=== PATIENT | male | born 1955 | race Caucasian/White ===

== ENCOUNTER 2018-01-11 09:16 | Day surgery (SDC) | payer BC ==
[~2018-01-11] VITALS: Ht 172.7 cm; Wt 61.6 kg
[~2018-01-11 09:16] MED LIST: ATOR10 PO; Advil200 M1; ERGO400; VITAMIN D35000 UNIT PO
== END 2018-01-11 11:18 | disposition home or self-care (01) ==
LOC: ORSCSDS 09:16
PROVIDERS: Internal Medicine Gastroenterology
PROC: 0DBN8ZX Excision of Sigmoid Colon, Via Natural or Artificial Opening Endoscopic, Diagnostic (ICD-10-PCS; principal; 2018-01-11 10:30)
DX: R10.32 Left lower quadrant pain (principal); K63.5 Polyp of colon; K57.30 Diverticulosis of large intestine without perforation or abscess without bleeding; Z86.010 Personal history of colon polyps; F17.210 Nicotine dependence, cigarettes, uncomplicated; Z79.899 Other long term (current) drug therapy
CPT/HCPCS: 88305; J1980; J7120

== ENCOUNTER → 2018-09-30 | Outpatient (CLI) | payer BC ==
[2018-09-30 15:09] LABS: Albumin, Blood 3.6 g/dL (3.4-5.0); Albumin/Globulin Ratio 1.2 (0.8-1.8); Alk Phos 103 U/L (50-136); Anion Gap 3 mmol/L (6-16); Aspartate Aminotrans (AST/SGOT 17 U/L (12-37); Bilirubin, Total 0.3 mg/dL (0.1-1.0); Blood Urea Nitrogen 22 mg/dL (8-24); CHOL/HDL RATIO 4.3; CO2, Blood 31 mmol/L (21-32); Chloride, Blood 109 mmol/L (98-108); Cholesterol 180 mg/dL (50-200); Globulin, Blood 3.1 g/dL (2.2-4.0); Glucose, Blood 79 mg/dL (70-99); HDL Cholesterol 42 mg/dL (>39); LDL/HDL RATIO 2.7; Low Density Lipoprotein Chol 115 mg/dL (0-110); Potassium, Blood 4.6 mmol/L (3.5-5.5); Sodium, Blood 143 mmol/L (136-145); Total Protein, Blood 6.7 g/dL (6.4-8.2); Triglycerides 117 mg/dL (30-160); Very Low Density Lipoprot Chol 23 mg/dL (6-32)
[2018-09-30 15:11] LABS: Alanine Aminotransfer (ALT/SGP 29 U/L (12-78); Bun/Creatinine Ratio 24.1 (12.0-20.0); Creatinine, Blood 0.91 mg/dL (0.60-1.20); Glomerular Filtration Rate >60 (60-)
== END | disposition home or self-care (01) ==
LOC: LAB SHORT 14:20 → LAB 14:20
PROVIDERS: Hospitalist
DX: Z12.5 Encounter for screening for malignant neoplasm of prostate (principal); E78.5 Hyperlipidemia, unspecified
CPT/HCPCS: 80053; 80061; G0103

== ENCOUNTER 2020-04-28 02:47 | Emergency (ER) | payer BC ==
[~2020-04-28] VITALS: Ht 172.7 cm; Wt 61.2 kg
[2020-04-28] MEDS ORDERED: CLOP75 PO (03:06)
[2020-04-28] MEDS ORDERED: TRAZ100 PO (03:06)
[2020-04-28] MEDS ORDERED: MELA3 PO (03:06)
[2020-04-28] MEDS ORDERED: BUPR75 PO (03:06)
[2020-04-28] MEDS ORDERED: BANOPHEN50 MG PO (03:08)
[2020-04-28] MEDS ORDERED: ACET500 PO (03:08)
[2020-04-28] MEDS ORDERED: Vitamin D2000 UNIT PO (03:08)
[2020-04-28 05:01] LABS: BASOPHILS ABSOLUTE AUTO 0.09 K/mm3 (0.00-0.23); BASOPHILS PERCENT AUTO 1 % (0-2); EOSINOPHILS ABSOLUTE AUTO 0.07 K/mm3 (0.00-0.68); EOSINOPHILS PERCENT AUTO 1 % (0-6); Hemoglobin 14.3 g/dL (13.5-17.5); IMMATURE GRAN ABSOLUTE AUTO 0.09 K/mm3 (0.00-0.10); IMMATURE GRAN PERCENT AUTO 1 % (0-1); LYMPHOCYTES ABSOLUTE AUTO 2.01 K/mm3 (0.84-5.20); LYMPHOCYTES PERCENT AUTO 15 % (21-46); MONOCYTES ABSOLUTE AUTO 0.98 K/mm3 (0.16-1.47); MONOCYTES PERCENT AUTO 7 % (4-13); Mean Corpuscular HGB 28.8 pg (26.0-34.0); Mean Corpuscular HGB Conc 32.5 g/dL (31.5-36.5); Mean Corpuscular Volume 89 fL (80-100); Mean Platelet Volume 9.4 fL (9.1-12.4); NEUTROPHILS ABSOLUTE AUTO 10.36 K/mm3 (1.96-9.15); NEUTROPHILS PERCENT AUTO 76 % (41-73); Platelet Count 198 K/mm3 (150-400); RDW Coefficient Variation 12.7 % (11.7-14.2); RDW Standard Deviation 41.1 fL (35.1-46.3); Red Blood Cell Count 4.97 M/mm3 (4.30-5.90)
[2020-04-28 05:28] LABS: Alanine Aminotransfer (ALT/SGP 28 U/L (12-78); Albumin, Blood 3.5 g/dL (3.4-5.0); Alk Phos 108 U/L (50-136); Anion Gap 5 mmol/L (6-16); Aspartate Aminotrans (AST/SGOT 21 U/L (12-37); Bilirubin, Total 0.3 mg/dL (0.1-1.0); Blood Urea Nitrogen 20 mg/dL (8-24); Bun/Creatinine Ratio 19.8 (12.0-20.0); CO2, Blood 29 mmol/L (21-32); Calcium, Blood 9.1 mg/dL (8.5-10.1); Chloride, Blood 108 mmol/L (98-108); Creatinine, Blood 1.01 mg/dL (0.60-1.20); Globulin, Blood 3.5 g/dL (2.2-4.0); Glomerular Filtration Rate >60 (60-); Glucose, Blood 100 mg/dL (70-99); Magnesium, Blood 2.1 mg/dL (1.6-2.4); Potassium, Blood 4.2 mmol/L (3.5-5.5); Sodium, Blood 142 mmol/L (136-145); Troponin I <0.015 ng/mL (0.000-0.040)
== END 2020-04-28 06:07 | disposition home or self-care (01) ==
LOC: ER 02:47
PROVIDERS: Emergency Medicine
DX: R06.00 Dyspnea, unspecified (principal); J44.9 Chronic obstructive pulmonary disease, unspecified; Z79.02 Long term (current) use of antithrombotics/antiplatelets; Z79.01 Long term (current) use of anticoagulants; Z79.899 Other long term (current) drug therapy
CPT/HCPCS: 36415; 71045; 80053; 83735; 84484; 85025; 85379; 93005; 93010; 99284-25

== ENCOUNTER 2021-07-18 06:43 | Day surgery (SDC) | payer BC ==
[~2021-07-18] VITALS: Ht 172.7 cm; Wt 71.8 kg
[~2021-07-18 06:43] MED LIST changes: +ACET500 PO; +ALBU90OI INH; +BANOPHEN50 MG PO; +BUPR75 PO; +CLOP75 PO; +Isosorbide Mono30 MG PO; +MELA3 PO; +TRAZ100 PO; +TRELEGY ELLIPT1 EACH INH; +Vitamin D2000 UNIT PO
[2021-07-18 08:56] LABS: Influenza A, PCR NEGATIVE (NEGATIVE); Influenza B, PCR NEGATIVE (NEGATIVE); Resp Syncytial Virus, PCR NEGATIVE (NEGATIVE); SARS-Cov-2 (COVID-19) PCR, MMC NEGATIVE (NEGATIVE)
--- NOTE | 2021-07-18 10:25 | NUR ---
DR SWAN AT BEDSIDE SPEAKING WITH PATIENT ABOUT ANGIOGRAM RESULTS AND PLAN FOR POSSIBLE CABG.
--- NOTE | 2021-07-18 11:00 | NUR ---
TR BAND HAS BEEN FULLY DEFLATED. NO BLEEDING OR SWELLING AT SITE. PT DENIES PAIN OR DISCOMFORT, CALL LIGHT IN REACH.
--- NOTE | 2021-07-18 11:44 | NUR ---
PT AMBULATED TO BATHROOM WITHOUT DIFFICULTY, RIGHT RADIAL SITE REMAINS SOFT AND NON-TENDER AND WITHOUT BLEEDING OR SWELLING.
--- NOTE | 2021-07-18 12:00 | NUR ---
IV DC'D, CATH INTACT. RIGHT RADIAL SITE SOFT, NON-TENDER, WITH NO BLEEDING OR SWELLING NOTED. CLOTH DOT DRESSING AND SPLINT IN PLACE. PT HAS VERBALIZED UNDERSTANDING OF DC INSTRUCTIONS AND ALL FOLLOW UP INFORMATION. OUT TO CAR VIA WHEELCHAIR, SPOUSE TO DRIVE PATIENT HOME.
== END 2021-07-18 12:00 | disposition home or self-care (01) ==
LOC: MHTC 06:43
PROVIDERS: Internal Medicine Interventional Cardiology
DX: I25.118 Atherosclerotic heart disease of native coronary artery with other forms of angina pectoris (principal); I65.22 Occlusion and stenosis of left carotid artery; E78.5 Hyperlipidemia, unspecified; Z87.891 Personal history of nicotine dependence
CPT/HCPCS: 0241U; 76937; 93458; 99152; 99153; A9270; C1769; C1887; C1894; J1644; J2250; J3010; J7030; J7050; Q9967

== ENCOUNTER → 2021-09-26 | Outpatient (CLI) | payer BC ==
[2021-09-26 15:00] LABS: BASOPHILS ABSOLUTE AUTO 0.09 K/mm3 (0.00-0.23); BASOPHILS PERCENT AUTO 1 % (0-2); EOSINOPHILS ABSOLUTE AUTO 0.12 K/mm3 (0.00-0.68); EOSINOPHILS PERCENT AUTO 1 % (0-6); Hematocrit 42.7 % (37.0-53.0); Hemoglobin 13.6 g/dL (13.5-17.5); IMMATURE GRAN ABSOLUTE AUTO 0.04 K/mm3 (0.00-0.10); IMMATURE GRAN PERCENT AUTO 0 % (0-1); LYMPHOCYTES ABSOLUTE AUTO 2.11 K/mm3 (0.84-5.20); LYMPHOCYTES PERCENT AUTO 18 % (21-46); MONOCYTES ABSOLUTE AUTO 0.77 K/mm3 (0.16-1.47); MONOCYTES PERCENT AUTO 7 % (4-13); Mean Corpuscular HGB 27.8 pg (26.0-34.0); Mean Corpuscular HGB Conc 31.9 g/dL (31.5-36.5); Mean Corpuscular Volume 87 fL (80-100); Mean Platelet Volume 10.5 fL (9.1-12.4); NEUTROPHILS ABSOLUTE AUTO 8.56 K/mm3 (1.96-9.15); NEUTROPHILS PERCENT AUTO 73 % (41-73); Platelet Count 221 K/mm3 (150-400); RDW Coefficient Variation 13.4 % (11.7-14.2); RDW Standard Deviation 43.4 fL (35.1-46.3); Red Blood Cell Count 4.89 M/mm3 (4.30-5.90); White Blood Cell Count 11.69 K/mm3 (4.00-11.30)
[2021-09-26 15:07] LABS: Alanine Aminotransfer (ALT/SGP 35 U/L (12-78); Albumin, Blood 3.7 g/dL (3.4-5.0); Albumin/Globulin Ratio 1.2 (0.8-1.8); Alk Phos 119 U/L (50-136); Anion Gap 9 mmol/L (6-16); Aspartate Aminotrans (AST/SGOT 22 U/L (12-37); Bilirubin, Total 0.4 mg/dL (0.1-1.0); Blood Urea Nitrogen 16 mg/dL (8-24); Bun/Creatinine Ratio 17.2 (12.0-20.0); CO2, Blood 25 mmol/L (21-32); Chloride, Blood 109 mmol/L (98-108); Creatinine, Blood 0.93 mg/dL (0.60-1.20); Globulin, Blood 3.2 g/dL (2.2-4.0); Glomerular Filtration Rate >60 (60-); Glucose, Blood 97 mg/dL (70-99); Potassium, Blood 4.3 mmol/L (3.5-5.5); Sodium, Blood 143 mmol/L (136-145); Total Protein, Blood 6.9 g/dL (6.4-8.2)
== END | disposition home or self-care (01) ==
LOC: LAB SHORT 09:40 → LAB 09:40
PROVIDERS: Hospitalist
DX: R06.02 Shortness of breath (principal)
CPT/HCPCS: 80053; 83880; 85025

== ENCOUNTER → 2022-08-05 | Outpatient (CLI) | payer BC ==
[2022-08-06 12:18] LABS: Campylobacter Sp Not Detected (NOT DETECT)
[2022-08-06 12:19] LABS: Adenovirus F 40/41 Not Detected (NOT DETECT); Astrovirus Not Detected (NOT DETECT); Cryptosporidium Not Detected (NOT DETECT); Cyclospora Cayetanensis Not Detected (NOT DETECT); E. Coli O157 Not Detected (NOT DETECT); Entamoeba Histolytica Not Detected (NOT DETECT); Enteroaggregative E. coli-EAEC Not Detected (NOT DETECT); Enteropathogenic E. coli-EPEC Not Detected (NOT DETECT); Enterotoxigenic E. coli-ETEC Not Detected (NOT DETECT); Giardia Lamblia Not Detected (NOT DETECT); Norovirus GI/GII Not Detected (NOT DETECT); Plesiomonas Shigelloides Not Detected (NOT DETECT); Rotavirus A Not Detected (NOT DETECT); Salmonella Sp Not Detected (NOT DETECT); Sapovirus Not Detected (NOT DETECT); Shiga Toxin-prod E. coli-STEC Not Detected (NOT DETECT); Shigella/Enteroin E. coli-EIEC Not Detected (NOT DETECT); Vibrio Cholerae Not Detected (NOT DETECT); Vibrio Sp Not Detected (NOT DETECT); Yersinia Enterocolitica Not Detected (NOT DETECT)
== END | disposition home or self-care (01) ==
LOC: LAB SHORT 11:40
PROVIDERS: Hospitalist
DX: R19.7 Diarrhea, unspecified (principal)
CPT/HCPCS: 87507

== ENCOUNTER → 2023-04-02 | Outpatient (CLI) | payer BC ==
[2023-04-02 16:05] LABS: Alanine Aminotransfer (ALT/SGP 36 U/L (12-78); Albumin, Blood 3.3 g/dL (3.4-5.0); Alk Phos 118 U/L (50-136); Anion Gap 5 mmol/L (6-16); Aspartate Aminotrans (AST/SGOT 22 U/L (12-37); Bilirubin, Total 0.3 mg/dL (0.1-1.0); Blood Urea Nitrogen 18 mg/dL (8-24); Bun/Creatinine Ratio 16.1 (12.0-20.0); CO2, Blood 28 mmol/L (21-32); Calcium, Blood 8.7 mg/dL (8.5-10.1); Chloride, Blood 109 mmol/L (98-108); Cholesterol 152 mg/dL (50-200); Creatinine, Blood 1.12 mg/dL (0.60-1.20); Globulin, Blood 3.2 g/dL (2.2-4.0); Glomerular Filtration Rate 71 (60-); Glucose, Blood 96 mg/dL (70-99); HDL Cholesterol 38 mg/dL (>39); LDL/HDL RATIO 2.2; Low Density Lipoprotein Chol 83 mg/dL (0-110); Potassium, Blood 4.3 mmol/L (3.5-5.5); Sodium, Blood 142 mmol/L (136-145); Total Protein, Blood 6.5 g/dL (6.4-8.2); Triglycerides 153 mg/dL (30-160); Very Low Density Lipoprot Chol 30 mg/dL (6-32)
== END | disposition home or self-care (01) ==
LOC: LAB SHORT 09:00 → LAB 09:00
PROVIDERS: Hospitalist
DX: I10 Essential (primary) hypertension (principal); E78.5 Hyperlipidemia, unspecified
CPT/HCPCS: 80053; 80061

== ENCOUNTER 2025-03-01 07:08 | Day surgery (SDC) | payer BC ==
[~2025-03-01] VITALS: Ht 172.7 cm; Wt 73.3 kg
[2025-03-01] VITALS (7 sets, daily range): BP systolic 120–138; BP diastolic 63–108
[~2025-03-01 07:08] MED LIST changes: +BISOPROLOL FUM2.5 MG PO; +Buspirone HCl15 MG PO; +C COMPLEX1000 M1 PO; +Lisinopril10 MG PO; +TAMS.4ER PO; +TIMO.25OPS BOTHEYES; +ZYRTEC10 M1 PO
[2025-03-01] MEDS ORDERED: Heparin Sodium 1000 Units/ML 10ML MDV ONE ×2 (07:45→08:21)
[2025-03-01] MEDS ORDERED: NS 500 ML IV ONE (07:45)
[2025-03-01] MEDS ORDERED: NS 250 ML IV ONE (07:45)
[2025-03-01] MEDS ORDERED: NS 1,000 ML IV ONE ×2 (07:45→08:21)
[2025-03-01] MEDS ORDERED: NS 100 ML IV ONE (07:45)
[2025-03-01] MEDS ORDERED: Midazolam HCl 1MG / ML 2ML Vial ONE (08:20)
[2025-03-01] MEDS ORDERED: FentaNYL Citrate 50 MCG/ML 2 ML Injection ONE (08:20)
[2025-03-01] MEDS ORDERED: Protamine Sulfate 50 MG Amp ONE (10:31)
--- NOTE | 2025-03-01 12:38 | NUR ---
PT AND S/O VERBALIZES UNDERSTANDING WRITTEN AND VERBAL INSTRUCTIONS. DENIES QUESTIONS OR CONCERNS. VSS. PT R FEMORAL SITE REMAINS C/D/I. NO BLEEDING NOTED. CALL LIGHT WITHIN REACH.
--- NOTE | 2025-03-01 13:25 | NUR ---
PT DRESSES SELF WITHOUT DIFF. PT AMBULATES TO RESTROOM AND BACK. PT R FEMORAL SITE REMAINS C/D/I. PT IV DC'D. CATH INTACT. PRESSURE DSG APPLIED. PT DC TO HOME VIA WC BY S/O
== END 2025-03-01 13:25 | disposition home or self-care (01) ==
LOC: MHTC 07:08
DX: I70.223 Atherosclerosis of native arteries of extremities with rest pain, bilateral legs (principal); I25.10 Atherosclerotic heart disease of native coronary artery without angina pectoris; E78.5 Hyperlipidemia, unspecified; I10 Essential (primary) hypertension; N40.0 Benign prostatic hyperplasia without lower urinary tract symptoms; Z87.891 Personal history of nicotine dependence; Z79.02 Long term (current) use of antithrombotics/antiplatelets; Z79.899 Other long term (current) drug therapy; Z95.1 Presence of aortocoronary bypass graft
CPT/HCPCS: 37227; 75625; 75716; 75774; 76937; 93242; 99152; 99153; A9270; J1644; J2250; J2720; J3010; J7030; J7040; J7050; Q9967

== ENCOUNTER 2025-03-21 07:04 | Day surgery (SDC) | payer BC ==
[2025-03-21] VITALS (7 sets, daily range): BP systolic 121–133; BP diastolic 69–90
[~2025-03-21] VITALS: Ht 172.7 cm; Wt 74.0 kg
[~2025-03-21 07:04] MED LIST changes: +VITAMIN D310 MC5 PO; -VITAMIN D35000 UNIT PO
[2025-03-21] MEDS ORDERED: LATA.005SO BOTHEYES (07:30)
[2025-03-21] MEDS ORDERED: Midazolam HCl 1MG / ML 2ML Vial ONE (07:46)
[2025-03-21] MEDS ORDERED: NS 1,000 ML IV ONE ×2 (07:46→07:56)
[2025-03-21] MEDS ORDERED: FentaNYL Citrate 50 MCG/ML 2 ML Injection ONE (07:46)
[2025-03-21] MEDS ORDERED: NS 250 ML IV ONE (07:55)
[2025-03-21] MEDS ORDERED: Heparin Sodium 1000 Units/ML 10ML MDV ONE (07:56)
[2025-03-21] MEDS ORDERED: Nitroglycerin 2 MG/20 ML BTL ONE (07:57)
[2025-03-21] MEDS ORDERED: NS 100 ML IV ONE (08:01)
--- NOTE | 2025-03-21 09:40 | NUR ---
PATIENT ARRIVED BACK TO RECOVERY ROOM WITH HOB FLAT. LEFT GROIN SITE C/D/I SOFT/NONTENDER, NO EVIDENCE OF BLEEDING. VSS ON RA. BILATERAL DISTAL PULSES PRESENT.
--- NOTE | 2025-03-21 10:30 | NUR ---
PATIENT HOB ELEVATED 30 DEGREES. LEFT GROIN SITE C/D/I SOFT/NONTENDER, NO EVIDENCE OF BLEEDING. BILATERAL DPS STRONG AND PALPABLE. VSS ON RA.
--- NOTE | 2025-03-21 10:51 | NUR ---
PATIENT SITTING UPRIGHT IN BED TOLERATING PO INTAKE WELL. LEFT GROIN SITE C/D/I SOFT/NONTENDER, NO EVIDENCE OF BLEEDING. VSS ON RA.
--- NOTE | 2025-03-21 11:00 | NUR ---
PATIENT AMBULATING TO RESTROOM WITHOUT DIFFICULTY. LEFT GROIN SITE C/D/I SOFT/NONTENDER, NO EVIDENCE OF BLEEDING. VSS ON RA. DISTAL BILATERAL DP PULSES PRESENT. PATIENT TOLERATING PO INTAKE WELL. SPOUSE PRESENT AT BEDSIDE.
--- NOTE | 2025-03-21 11:17 | NUR ---
PATIENT DISCHARGED HOME AT THIS TIME. DISCHARGE INSTRUCTIONS AND FOLLOW UP APPOINTMENT REVIEWED. ALL QUESTIONS WERE ANSWERED. PIV REMOVED WITHOUT DIFFICULTY, CATHETER INTACT. LEFT GROIN SITE C/D/I SOFT/NONTENDER, NO EVIDENCE OF BLEEDING. PATIENT WHEELED TO HOSPITAL ENTRANCE AND SPOUSE ABLE TO PROVIDE TRANSPORTATION HOME. ALL PATIENT BELONGINGS AND PAPERWORK LEFT WITH PATIENT.
== END 2025-03-21 11:17 | disposition home or self-care (01) ==
LOC: MHTC 07:04
DX: I70.222 Atherosclerosis of native arteries of extremities with rest pain, left leg (principal); I10 Essential (primary) hypertension; E78.5 Hyperlipidemia, unspecified; I25.10 Atherosclerotic heart disease of native coronary artery without angina pectoris; Z87.891 Personal history of nicotine dependence; Z79.899 Other long term (current) drug therapy
CPT/HCPCS: 36140; 75710; 76937; 99152; 99153; C1714; C1725; C1753; C1760; C1769; C1874; C1884; C1887; C1894; C2623; J1644; J2250; J3010; J7030; J7050; Q9967